=== PATIENT | female | born 1990 | race African-American/Black ===

== ENCOUNTER 2017-03-18 11:00 | Inpatient (IN) | payer OTHER ==
--- NOTE | ~2017-03-18 | DS ---
Unit #: [id number] #: [id number] Patient: SONIYA KO [id number] [facility] [address] [place] [address] [id number] I MR#: [id number] NAME: SONIYA KO ROOM: 16 Age: 27 Sex: F Admission Date: 03/18/2017 : 1990 Discharge Date: 03/21/2017 Attending Physician: Jose Hardin M.D. Primary Care Physician: Primary Care Physician No DISCHARGE SUMMARY REASON FOR ADMISSION The patient is a 27-year-old female, admitted with recurrent use of alcohol and psychosis. HOSPITAL COURSE The patient was admitted to the [address] [place] [address] unit and placed on suicide precautions. She was restarted on previously prescribed medications including Prozac and Zyprexa. Zyprexa was increased to 15 mg at bedtime. As has been the case during previous hospitalizations, the patient appeared initially to be extremely decompensated and then had a rapid and almost miraculous recovery. When seen by this physician on 03/21/2017, the patient was bright, euthymic, and exhibited absolutely. No evidence of psychosis or disordered mood or thought. She did attribute the events, which led to hospitalization to intoxication and was in agreement with plan for followup in the intensive outpatient program provided by this facility. As per her request, discharge was ordered. FINAL DIAGNOSES Alcohol use disorder; mood disorder, unspecified; morbid obesity. DISPOSITION ON DISCHARGE The patient is discharged on the following medications: Zyprexa 15 mg at bedtime for mood stabilization and Prozac 20 mg daily for mood stabilization. DISCHARGE INSTRUCTIONS No dietary or physical restrictions were placed upon the patient at the time of discharge. FOLLOWUP Follow up will take place in the intensive outpatient program provided by this facility. PROGNOSIS The patient's prognosis is considered fair. Dictated by... Jose Hardin M.D. CB/katina TD: 03/21/2017 14:10 Unit #: [id number] #: [id number] Patient: SONIYA KO JOB #: [id number] DISCHARGE SUMMARY Page 1 of 1 X Jose Hardin MD X DISCHARGE SUMMARY
--- NOTE | ~2017-03-18 | PN ---
Unit #: [id number] #: [id number] Patient: SONIYA KO [id number] [facility] [address] [place] [address] [id number] I MR#: [id number] NAME: SONIYA KO ROOM: 16 Age: 27 Sex: F Admission Date: 03/18/2017 : 1990 Attending Physician: Jose Hardin M.D. Admitting Physician: Jose Hardin M.D. Primary Care Physician: Primary Care Physician June GUTIERREZ PROGRESS NOTES DATE 03/20/2017 DISCUSSION The patient is abed resting comfortably today. Staff that she remains seclusive to room but remains somewhat bizarre. Review of the patient's chart yesterday does indicate the patient had showed remarkable state of improvement upon her discharge from this facility on the last occasion of her hospitalization and she had been assigned a diagnosis of bipolar spectrum disorder after there had initially been concerns regarding possible schizophreniform disorder. Dictated by... Jose Hardin M.D. CB/ev TD: 03/21/2017 01:15 JOB #: [id number] [facility] PROGRESS NOTES Page 1 of 1 X Jose Hardin MD X PROGRESS NOTE
--- NOTE | ~2017-03-18 | PA ---
Unit #: [id number] #: [id number] Patient: SONIYA KO [id number] [facility] [address] [place] [address] [id number] MR#: [id number] NAME: SONIYA KO ROOM: P116 Age: 27 Sex: F Admission Date: 03/18/2017 : 1990 Date of Assessment: 03/19/2017 Attending Physician: Jose Hardin M.D. Admitting Physician: Jose Hardin M.D. Primary Care Physician: Primary Care Physician No PSYCHIATRIC ASSESSMENT IDENTIFYING INFORMATION The patient is a 27-year-old female well known to this physician. She is admitted with recurrence of psychosis and alcohol use. CHIEF COMPLAINT None given. INFORMANT Patient and chart, reliability is fair. HISTORY OF PRESENT ILLNESS The patient is a 27-year-old female admitted to the [address] [place] [address] Unit after she had been brought to this facility by family members. The patient has been acting in a bizarre fashion reporting that she was hearing voices telling her to go to her old high school. The patient also drank a fifth of Tequila at the school. The patient apparently returned home without her pants. The patient has reported increasing auditory hallucinations when seen today and queried regarding the reason for her admission to the hospital. The patient states "God" then hungrily eats her lunch and does not comply with further attempted interview. She does nod yes when queried as to whether she has been continuing to comply with her prescribed medications. The patient has been an inpatient at this facility in the past but it is unclear who is providing her outpatient care at this time. PAST PSYCHIATRIC HISTORY Reviewed, no changes. PAST MEDICAL HISTORY The patient is morbidly obese. MEDICATIONS Prozac, Zyprexa. ALLERGIES None reported. FAMILY HISTORY Reviewed, no changes. SOCIAL HISTORY Reviewed, no changes. Unit #: [id number] #: [id number] Patient: SONIYA KO MENTAL STATUS EXAMINATION Examination at this time reveals the patient to be a morbidly obese, hungrily eating female. She is dressed in the hospital garb. The patient does not comply with attempted interview apart from nodding yes and reporting one-word "God" when queried as to why she had been brought to the hospital. ASSETS AND LIABILITIES The patient's assets: Supportive family. Liabilities: Ongoing substance use, chronicity of illness, poor compliance with treatment. DIAGNOSTIC IMPRESSION 1. Chronic paranoid schizophrenia. 2. Alcohol use disorder. 3. Morbid obesity. TREATMENT PLAN The patient's medications will be continued, and her Zyprexa increased to 15 mg at bedtime. The patient will participate in appropriate order of milieu activities, and routine detoxification protocol has been initiated. ESTIMATED LENGTH OF STAY 5 to 7 days. Dictated by... Jose Hardin M.D. Kayleigh TD: 03/19/2017 13:24 JOB #: [id number] PSYCHIATRIC ASSESSMENT Page 1 of 1 X Jose Hardin MD X PSYCHIATRIC ASSESSMENT
--- NOTE | ~2017-03-18 | HP ---
Unit #: [id number] #: [id number] Patient: SONIYA KO [id number] [place] [address] [id number] I MR#: [id number] NAME: SONIYA KO ROOM: P116 Age: 27 Sex: F Admission Date: 03/18/2017 : 1990 Attending Physician: Jose Hardin M.D. Admitting Physician: Jose Hardin M.D. Primary Care Physician: Primary Care Physician No HISTORY AND PHYSICAL HISTORY OF PRESENT ILLNESS The patient is a 27-year-old female who states she is having some depression problems. She is having some problems with alcohol, hearing voices. PAST MEDICAL HISTORY None. PAST SURGICAL HISTORY None. ALLERGIES None. SOCIAL HISTORY Negative. FAMILY HISTORY Noncontributory. REVIEW OF SYSTEMS CONSTITUTIONAL: No fever or chills. HEENT: Denies any sore throat, ear pain or runny nose. CARDIOVASCULAR: Denies chest pain, irregular heart rhythm or palpitations. CHEST: Denies shortness of breath or cough. No hemoptysis. GASTROINTESTINAL: Denies nausea, vomiting, diarrhea or chronic constipation. ENDOCRINE: Denies history of increased thirst or urination. No recent significant weight loss or gain. GENITOURINARY: Denies dysuria, frequency, or hematuria. SKIN: Denies any rashes. HEMATOLOGIC: Denies history of increased bleeding or bruising. MUSCULOSKELETAL: Denies any hot, swollen joints. No generalized muscle pain. NEUROLOGIC: Denies problems with vision or speech. No frequent, severe headaches. No numbness, tingling or weakness in any extremities. Denies loss of bladder or bowel control. CURRENT MEDICATIONS None. PHYSICAL EXAMINATION GENERAL: Alert, oriented, in no acute distress. Unit #: [id number] #: [id number] Patient: SONIYA KO VITAL SIGNS: Blood pressure 91/41, heart rate 90, respirations 18, temperature 98. HEIGHT: 5 feet 7 inches. WEIGHT: 250 pounds. SKIN: Warm and dry without rash or lesion. Multiple tattoos to the right abdomen, right arm, left upper arm. HEENT: Normocephalic. TMs not viewed. Oral and nasal passages clear. Conjunctivae clear. PERRLA. EOMs intact. NECK: Supple without lymphadenopathy or thyromegaly. HEART: Regular rate and rhythm without murmur. LUNGS: Clear. ABDOMEN: Soft, nontender, without masses or hepatosplenomegaly. : Not done. EXTREMITIES: No evidence of cyanosis, clubbing or edema. Moves all without focal deficit. NEUROLOGICAL: Grossly within normal limits. Cranial Nerves: II: Visual monroe are intact. III, IV AND : Extraocular movements are intact. Pupils are equal, round and reactive to light. V: Facial sensation is grossly normal. VII: Facial movements and expression are normal. VIII: Auditory acuity grossly intact. IX, X: Uvula is midline. Phonation is normal. XI: Patient shrugs shoulders and turns head normally. XII: Tongue protrudes in the midline. Sensory and Motor Function: Sensory and motor sensation is grossly normal. Motor: moves all extremities well. Coordination: Gait is normal. Deep Tendon Reflexes: Intact. IMPRESSION Psychiatric admission. RECOMMENDATIONS PSYCHIATRIC: Per psychiatrist. MEDICAL: No contraindication to participate in facility's activities. MEDICAL PROGNOSIS Good. Dictated by... Aylin Levy/renee TD: 03/19/2017 18:32 JOB #: [id number] Unit #: [id number] #: [id number] Patient: SONIYA KO HISTORY AND PHYSICAL Page 1 of X Michelle Pal APR X HISTORY AND PHYSICAL
[2017-03-19 11:26] LABS: BASOPHIL# 0.1 X10e3 (0-0.3); BASOPHIL% 0.8 % (0-2.5); EOSINOPHIL# 0.1 X10e3 (0-0.7); EOSINOPHIL% 0.7 % (0.0-7.0); HEMATOCRIT 39.5 % (35.0-45.0); HEMOGLOBIN 13.1 gm/dL (12.0-16.0); LYMPHOCYTE# 2.7 X10e3 (1.0-3.5); LYMPHOCYTE% 27.4 % (17.0-45.0); MEAN CELL VOLUME 89.9 FL (83-96); MEAN CORPUSCULAR HEMOGLOBIN 29.8 PG (28-34); MEAN CORPUSCULAR HGB CONC 33.2 g/dL (30-36); MEAN PLATELET VOLUME 8.2 FL (6.5-11.5); MONOCYTE# 0.8 X10e3 (0-1.0); MONOCYTE% 7.8 % (3.0-12.0); NEUTROPHIL# 6.2 X10e3 (1.5-7.1); NEUTROPHIL% 63.3 % (40-75); PLATELET COUNT 320 X10e3 (140-420); RED BLOOD COUNT 4.39 X10e (3.90-5.30); RED CELL DISTRIBUTION WIDTH 14.3 % (11.0-15.5); WHITE BLOOD COUNT 9.8 X10e3 (4.0-10.5)
[2017-03-19 11:34] LABS: DIFF IND NO
[2017-03-19 12:13] LABS: ALBUMIN SERUM 3.5 g/dL (3.5-5.0); BILIRUBIN,TOTAL 0.8 mg/dL (0.2-2.0); BUN/CREATININE RATIO 14.44; CALCIUM SERUM 9.3 mg/dL (8.4-10.2); CREATININE SERUM 0.9 mg/dL (0.6-1.4); GLOM FILT RATE Estimated 103.1 mL/min (>60); POTASSIUM 3.9 mmol/L (3.5-5.1); PROTEIN TOTAL SERUM 6.7 g/dL (6.0-8.3)
[2017-03-20 11:32] LABS: TMH HEPATITIS B SURFACE AG -JH Negative (Negative); TMH HEPATITIS C AB - JH Negative (Negative)
== END 2017-03-21 16:09 | disposition home or self-care (01) | DRG 885 ==
LOC: P1S 15:50
PROVIDERS: Specialist
PROC: HZ2ZZZZ Detoxification Services for Substance Abuse Treatment (ICD-10-PCS; principal; 2017-03-18)
DX: F20.0 Paranoid schizophrenia (principal); E66.01 Morbid (severe) obesity due to excess calories; F10.20 Alcohol dependence, uncomplicated
CPT/HCPCS: 80053; 84703; 85025; 86803; 87340; 87806; J1200; J1630; J2060

== ENCOUNTER 2017-04-05 19:12 | Inpatient (IN) | payer OTHER ==
[~2017-04-05] VITALS: Ht 170.2 cm; Wt 113.4 kg
--- NOTE | ~2017-04-05 | HP ---
Unit #: [id number] #: [id number] Patient: SONIYA KO [id number] [facility] [address] [place] [address] [id number] I MR#: [id number] NAME: SONIYA KO ROOM: [facility] Age: 27 Sex: F Admission Date: 04/05/2017 : 1990 Attending Physician: Jose Hardin M.D. Admitting Physician: Jose Hardin M.D. Primary Care Physician: Primary Care Physician No HISTORY AND PHYSICAL NOTE Soniya is a 27-year-old female admitted to [facility] with depression and because of her abuse of alcohol. The patient was seen and H and P dated 03/19/2017 was reviewed. This is current. No changes. Please see H and P dated 03/19/2017. Dictated by... Annita Belcher P.A.-C. for Marcin Donaldson/ev TD: 04/06/2017 21:06 JOB #: [id number] HISTORY AND PHYSICAL Page 1 of 1 X Annita Belcher HISTORY AND PHYSICAL
--- NOTE | ~2017-04-05 | PA ---
Unit #: [id number] #: [id number] Patient: SONIYA KO [id number] [facility] [address] [place] [address] [id number] I MR#: [id number] NAME: SONIYA KO ROOM: P254 Age: 27 Sex: F Admission Date: 04/05/2017 : 1990 Date of Assessment: 04/06/2017 Attending Physician: Jose Hardin M.D. Admitting Physician: Jose Hardin M.D. Primary Care Physician: Primary Care Physician No PSYCHIATRIC ASSESSMENT IDENTIFY INFORMATION The patient is a 27-year-old female, admitted after she had become intoxicated and made suicidal and homicidal threats. INFORMANT(S) Patient, reliability is fair. CHIEF COMPLAINT None given. HISTORY OF PRESENT ILLNESS The patient is a 27-year-old female, last discharged from this facility on 03/21/2017. The patient had been participating in the intensive outpatient program but while there had relapsed and began using alcohol again. She had reported to this facility that she was having thoughts of "killing people and killing family and friends," and was also having suicidal thoughts. The patient reports that she had recently relapsed from alcohol and when seen today the patient is contrite over this and is denying any suicidal or homicidal ideations. For a more complete history of present illness please refer to previously dictated notes. PAST PSYCHIATRIC HISTORY Reviewed and no changes. PAST MEDICAL HISTORY Reviewed and no changes. MEDICATIONS 1. Prozac 2. Zyprexa ALLERGIES None reported. FAMILY HISTORY Reviewed and no changes. SOCIAL HISTORY Reviewed and no changes. MENTAL STATUS EXAM At this time reveals the patient to be a morbidly obese Unit #: [id number] #: [id number] Patient: SONIYA KO female, appearing her stated age. She is dressed in hospital garb. She is awake, alert, and oriented in all spheres. Her mood is mildly dysphoric. Her affect is congruent. Speech is generally relevant and coherent. There are no gross deficits to memory or cognition noted. Intelligence is judged to be in the average range based on fund of knowledge. The patient is cooperative throughout the interview. She is currently denying suicidal or homicidal ideation, denies any psychotic symptoms. Her judgment and insight appear to be intact. ASSETS Motivation for change. LIABILITIES Lack of resources. DIAGNOSTIC IMPRESSION [place] I: Alcohol use disorder. Mood disorder, unspecified. TREATMENT PLAN The patient will be transferred to the [facility] or [address] [place] [address] and a routine detoxification protocol for alcohol has been put in place. Prozac and Zyprexa will be reinitiated at their previous doses. ESTIMATED LENGTH OF STAY Szbpq-hz-xvas days. Follow up to take place in the intensive outpatient program provided by this facility. Dictated by... Jose Hardin M.D. ABDIAS/tavia TD: 04/06/2017 12:44 JOB #: [id number] PSYCHIATRIC ASSESSMENT Page 1 of 1 X Jose Hardin MD X PSYCHIATRIC ASSESSMENT
--- NOTE | ~2017-04-05 | DS ---
Unit #: [id number] #: [id number] Patient: SONIYA KO [id number] [facility] [address] [place] [address] [id number] I MR#: [id number] NAME: SONIYA KO ROOM: 73 Age: 27 Sex: F Admission Date: 04/05/2017 : 1990 Discharge Date: 04/08/2017 Attending Physician: Jose Hardin M.D. Primary Care Physician: Primary Care Physician No DISCHARGE SUMMARY REASON FOR ADMISSION The patient is a 27-year-old female, admitted with recurrent abuse of alcohol. HOSPITAL COURSE The patient was admitted to the [facility] unit and placed on routine detoxification protocol for opioids. Home medications including Prozac and Zyprexa were continued. The patient's mentation cleared rapidly and by 04/08/2017, she was requesting discharge. It is worth noting that some of the patient's symptoms of disordered mood do seem related to her alcohol use. This physician has encountered the patient when she does seem to have been in actual bipolar manic or depressed which in the opinion this physician to justify continued use of Prozac and Zyprexa. During the patient's continued participation in intensive outpatient programming, we makes poor initiation of further mood stabilizing medication i.e., lithium or Depakote. Dictated by... Jose Hardin M.D. CB/modl TD: 04/10/2017 10:49 JOB #: [id number] DISCHARGE SUMMARY Page 1 of 1 X Jose Hardin MD X DISCHARGE SUMMARY
--- NOTE | ~2017-04-05 | PN ---
Unit #: [id number] #: [id number] Patient: SONIYA KO [id number] [facility] [address] [place] [address] [id number] I MR#: [id number] NAME: SONIYA KO ROOM: 73 Age: 27 Sex: F Admission Date: 04/05/2017 : 1990 Attending Physician: Jose Hardin M.D. Admitting Physician: Jose Hardin M.D. Primary Care Physician: Primary Care Physician June GUTIERREZ PROGRESS NOTES DATE 04/07/2017 DISCUSSION The patient is abed sleeping soundly today. Staff reports no management issues and her detox continues uneventfully should she sustain progress discharge could take place as early as tomorrow. Dictated by... Jose Hardin M.D. CB/ev TD: 04/07/2017 22:42 JOB #: [id number] [facility] PROGRESS NOTES Page 1 of 1 X Jose Hardin MD X PROGRESS NOTE
--- NOTE | ~2017-04-05 | DS ---
Unit #: [id number] #: [id number] Patient: SONIYA KO [id number] [facility] [address] [place] [address] [id number] I MR#: [id number] NAME: SONIYA KO ROOM: 73 Age: 27 Sex: F Admission Date: 04/05/2017 : 1990 Discharge Date: 04/08/2017 Attending Physician: Jose Hardin M.D. Primary Care Physician: Primary Care Physician No DISCHARGE SUMMARY FINAL DIAGNOSES Alcohol use disorder, bipolar disorder, unspecified and morbid obesity. DISPOSITION ON DISCHARGE The patient is discharged on the following medications: Zyprexa 15 mg at bedtime for mood stabilization, Prozac 20 mg daily for depression, Vistaril 50 mg q.6 hours p.r.n. anxiety and melatonin 5 mg at bedtime p.r.n. insomnia. DISCHARGE INSTRUCTIONS No dietary or physical restrictions were placed on the patient on discharge. She will return to the intensive outpatient program provided by this facility. PROGNOSIS Considered fair. Dictated by... Jose Hardin M.D. CB/katina TD: 04/10/2017 11:15 JOB #: [id number] DISCHARGE SUMMARY Page 1 of 1 X Jose Hardin MD X DISCHARGE SUMMARY
[2017-04-06 09:33] LABS: BASOPHIL% 0.5 % (0-2.5); EOSINOPHIL# 0.2 X10e3 (0-0.7); EOSINOPHIL% 2.5 % (0.0-7.0); HEMATOCRIT 40.4 % (35.0-45.0); HEMOGLOBIN 13.3 gm/dL (12.0-16.0); LYMPHOCYTE# 2.9 X10e3 (1.0-3.5); LYMPHOCYTE% 41.1 % (17.0-45.0); MEAN CELL VOLUME 90.2 FL (83-96); MEAN CORPUSCULAR HEMOGLOBIN 29.6 PG (28-34); MEAN CORPUSCULAR HGB CONC 32.8 g/dL (30-36); MEAN PLATELET VOLUME 7.8 FL (6.5-11.5); MONOCYTE# 0.6 X10e3 (0-1.0); MONOCYTE% 8.6 % (3.0-12.0); NEUTROPHIL# 3.3 X10e3 (1.5-7.1); NEUTROPHIL% 47.3 % (40-75); PLATELET COUNT 323 X10e3 (140-420); RED BLOOD COUNT 4.48 X10e (3.90-5.30); RED CELL DISTRIBUTION WIDTH 14.7 % (11.0-15.5)
[2017-04-06 09:37] LABS: DIFF IND NO
[2017-04-06 10:13] LABS: ALBUMIN SERUM 3.2 g/dL (3.5-5.0); BILIRUBIN,TOTAL 0.1 mg/dL (0.2-2.0); BUN/CREATININE RATIO 13.75; CALCIUM SERUM 9.3 mg/dL (8.4-10.2); CREATININE SERUM 0.8 mg/dL (0.6-1.4); GLOM FILT RATE Estimated 118.9 mL/min (>60); POTASSIUM 4.8 mmol/L (3.5-5.1); PROTEIN TOTAL SERUM 6.5 g/dL (6.0-8.3)
[2017-04-08 09:35] LABS: URINE APPEARANCE CLEAR; URINE BILIRUBIN NEG (NEG); URINE BLOOD NEG (NEG); URINE COLOR DK YELLOW; URINE GLUCOSE NEG (NEG); URINE KETONE NEG (NEG); URINE LEUKOCYTE ESTERASE TRACE (NEG); URINE NITRATE NEG (NEG); URINE PH 6.5 (5-8); URINE PROTEIN NEG (NEG); URINE SPECIFIC GRAVITY 1.012 (1.003-1.035); URINE UROBILINOGEN 0.2 MG/DL (NEG)
[2017-04-08 09:39] LABS: URBCS1 AUWI 0-2 /[HPF] (0-2); URINE BACTERIA AUWI NEG (NEGATIVE); URINE SQUAMOUS EPITHELIAL CELL NONE SEEN /[HPF]; UWBCS1 AUWI 0-2 (0-5)
[2017-04-08 10:29] LABS: AMPHETAMINE NEG (NEG); BARBITURATES NEG (NEG); BENZODIAZEPINES NEG (NEG); COCAINE NEG (NEG); MARIJUANA NEG (NEG); OPIATES NEG (NEG); TRICYCLIC ANTIDEPRESSANTS NEG (NEG); U METHADONE NEG (NEG)
== END 2017-04-08 15:45 | DRG 897 ==
LOC: P2L 21:38 → P1E 04-06 17:56
PROVIDERS: Specialist
PROC: HZ2ZZZZ Detoxification Services for Substance Abuse Treatment (ICD-10-PCS; principal; 2017-04-05)
DX: F10.10 Alcohol abuse, uncomplicated (principal); E66.01 Morbid (severe) obesity due to excess calories; F39 Unspecified mood [affective] disorder; F31.9 Bipolar disorder, unspecified; Z68.39 Body mass index [BMI] 39.0-39.9, adult
CPT/HCPCS: 80053; 80307; 81003; 84703; 85025; 86592

== ENCOUNTER 2017-05-08 19:43 | Inpatient (IN) | payer OTHER ==
--- NOTE | ~2017-05-08 | PA ---
Unit #: [id number] #: [id number] Patient: SONIYA KO [id number] [facility] [address] [place] [address] [id number] MR#: [id number] NAME: SONIYA KO ROOM: 30 Age: 27 Sex: F Admission Date: 05/08/2017 : 1990 Date of Assessment: 05/09/2017 Attending Physician: Jose Hardin M.D. Admitting Physician: Jose Hardin M.D. Primary Care Physician: Primary Care Physician No PSYCHIATRIC ASSESSMENT IDENTIFY INFORMATION The patient is a 27-year-old female, admitted to the hospital after she presented homicidal ideation and ongoing use of substances. CHIEF COMPLAINT None given. INFORMANT Chart, patient could not aroused for interview. HISTORY OF PRESENT ILLNESS The patient is a 27-year-old female well known to this facility from multiple previous admissions to this facility. She is readmitted after she presented to this facility intoxicated and claiming to have homicidal ideation towards family members. The patient has a history of adverse response to alcohol and tends to clear rapidly once hospitalized. She is today soundly sleeping and cannot be aroused for interview. For more complete history of present illness please refer to previous dictated notes. PAST PSYCHIATRIC HISTORY Reviewed and no changes. PAST MEDICAL HISTORY Reviewed and no changes. MEDICATIONS 1. Prozac 2. Zyprexa ALLERGIES None. FAMILY HISTORY Reviewed and no changes. SOCIAL HISTORY Reviewed and no changes. MENTAL STATUS EXAM At this time reveals the patient to be a morbidly obese Unit #: [id number] #: [id number] Patient: SONIYA KO female who is abed and sleeping soundly. Multiple attempts to arouse the patient are unsuccessful. ASSETS To be assessed. LIABILITIES Lack of resources, ongoing alcohol use, poor compliance of treatment. . DIAGNOSTIC IMPRESSION [place] I: Alcohol use disorder. Cannabis use disorder. Psychotic disorder unspecified. TREATMENT PLAN The patient remains hospitalized for safety and stabilization. A routine detoxification protocol for alcohol has been initiated and we will restart the patient's previously prescribed Prozac and Zyprexa. She will participate in appropriate pack and milieu activities with an estimate length of stay in the hospital of 5 to 7 days. Dictated by... Marcin House TD: 05/09/2017 21:59 JOB #: [id number] PSYCHIATRIC ASSESSMENT Page 1 of 1 X Jose Hardin MD X PSYCHIATRIC ASSESSMENT
--- NOTE | ~2017-05-08 | DS ---
Unit #: [id number] #: [id number] Patient: SONIYA KO [id number] [facility] [address] [place] [address] [id number] I MR#: [id number] NAME: SONIYA KO ROOM: [facility] Age: 27 Sex: F Admission Date: 05/08/2017 : 1990 Discharge Date: 05/10/2017 Attending Physician: Jose Hardin M.D. Primary Care Physician: Primary Care Physician No DISCHARGE SUMMARY REASON FOR ADMISSION The patient is a 27-year-old single female admitted after she had become intoxicated and psychotic. HOSPITAL COURSE The patient was admitted to the [address] [place] [address] unit and restarted on previously prescribed medications, Prozac and Zyprexa. Routine detoxification protocol was ordered. The patient's response to these medications was rapid and dramatic. By 05/10, the patient was in bright spirits and exhibited no signs or symptoms of withdrawal or psychosis. She was again firmly confronted regarding the deleterious effect of ongoing abuse of psychoactive substances is having on her. Discharge was ordered as per her request. DISCHARGE DIAGNOSES 1. Alcohol use disorder. 2. Cannabis use disorder. 3. Morbid obesity. FOLLOWUP CARE Followup to take place through the auspices of community mental health resources. DISCHARGE MEDICATIONS The patient is discharged on the following medications: 1. Prozac 20 mg daily for depression. 2. Zyprexa 15 mg at h.s. for psychosis. DIET AND ACTIVITY No dietary or physical restrictions were placed on the patient at time of discharge. Dictated by... Jose Hardin M.D. ABDIAS/renee TD: 05/10/2017 17:54 Unit #: [id number] #: [id number] Patient: SONIYA KO JOB #: [id number] DISCHARGE SUMMARY Page 1 of 1 X Jose Hardin MD X DISCHARGE SUMMARY
--- NOTE | ~2017-05-08 | HP ---
Unit #: [id number] #: [id number] Patient: SONIYA KO [id number] [facility] [address] [place] [address] [id number] MR#: [id number] NAME: SONIYA KO ROOM: 30 Age: 27 Sex: F Admission Date: 05/08/2017 : 1990 Attending Physician: Jose Hardin M.D. Admitting Physician: Jose Hardin M.D. Primary Care Physician: Primary Care Physician No HISTORY AND PHYSICAL HISTORY OF PRESENT ILLNESS Soniya is a 27 year old admitted to [address] [place] [address] because of her continued abuse of alcohol and after verbalizing wanting to kill "everybody." She was recently discharged from this facility after treatment for her alcohol abuse. PAST MEDICAL HISTORY History of alcohol abuse. PAST SURGICAL HISTORY Nothing reported. ALLERGIES No known drug allergies. SOCIAL HISTORY She does not smoke. Drinks alcohol frequently to excess and admits to using marijuana. FAMILY HISTORY Medically noncontributory. REVIEW OF SYSTEMS She does not answer questions appropriately. There are no reports of nausea, vomiting or diarrhea. She has had no cough or increased temperature. CURRENT MEDICATIONS 1. Prozac 20 mg q day 2. Zyprexa 15 mg q day 3. Milk of Magnesia p.r.n. 4. Maalox p.r.n. 5. Tylenol p.r.n. 6. Nicotine patch 14 mg q day PHYSICAL EXAMINATION GENERAL: Alert, morbidly obese, in no apparent distress. VITAL SIGNS: Blood pressure 150/94, heart rate 100, respirations 16, temperature 98.6. WEIGHT: 250. HEIGHT: 5 foot 7 inches. SKIN: Warm and dry without rash or lesion. Unit #: [id number] #: [id number] Patient: SONIYA KO HEENT: Normocephalic. TMs not viewed. Oral and nasal passages clear. Conjunctivae clear. Pupils equal, round and reactive to light and accommodation. Extraocular movements intact. NECK: Supple without lymphadenopathy or thyromegaly. HEART: Regular rate and rhythm without murmur. LUNGS: Clear. ABDOMEN: Soft, nontender. : Not done. EXTREMITIES: No evidence of cyanosis, clubbing or edema. Moves all extremities without focal deficit. NEUROLOGICAL: Unable to complete extended exam. She does move all extremities without focal deficit. Hand terrazzo layer is equal and gait is normal. IMPRESSION Psychiatric admission. RECOMMENDATIONS PSYCHIATRIC: Per psychiatrist. MEDICAL: I see no contraindications to participating in facility's activities. MEDICAL PROGNOSIS Good. MEDICAL CONDITION Stable. Dictated by... Annita Belcher P.A.-C. for Marcin Donaldson/ev TD: 05/10/2017 00:06 JOB #: [id number] HISTORY AND PHYSICAL Page 1 of 1 X Annita Belcher X HISTORY AND PHYSICAL
[2017-05-09 12:38] LABS: BASOPHIL# 0.1 X10e3 (0-0.3); BASOPHIL% 0.7 % (0-2.5); EOSINOPHIL# 0.7 X10e3 (0-0.7); EOSINOPHIL% 8.5 % (0.0-7.0); HEMOGLOBIN 12.6 gm/dL (12.0-16.0); LYMPHOCYTE# 2.7 X10e3 (1.0-3.5); LYMPHOCYTE% 31.9 % (17.0-45.0); MEAN CORPUSCULAR HEMOGLOBIN 29.6 PG (28-34); MEAN CORPUSCULAR HGB CONC 33.3 g/dL (30-36); MEAN PLATELET VOLUME 8.1 FL (6.5-11.5); MONOCYTE# 0.6 X10e3 (0-1.0); MONOCYTE% 7.1 % (3.0-12.0); NEUTROPHIL# 4.4 X10e3 (1.5-7.1); NEUTROPHIL% 51.8 % (40-75); PLATELET COUNT 298 X10e3 (140-420); RED BLOOD COUNT 4.27 X10e (3.90-5.30); RED CELL DISTRIBUTION WIDTH 14.4 % (11.0-15.5); WHITE BLOOD COUNT 8.4 X10e3 (4.0-10.5)
[2017-05-09 12:51] LABS: ALBUMIN SERUM 3.2 g/dL (3.5-5.0); BILIRUBIN,TOTAL 0.9 mg/dL (0.2-2.0); BUN/CREATININE RATIO 12.5; CALCIUM SERUM 8.9 mg/dL (8.4-10.2); CREATININE SERUM 0.8 mg/dL (0.6-1.4); GLOM FILT RATE Estimated 118.9 mL/min (>60); POTASSIUM 4.3 mmol/L (3.5-5.1); PROTEIN TOTAL SERUM 5.9 g/dL (6.0-8.3)
== END 2017-05-10 15:12 | disposition home or self-care (01) | DRG 897 ==
LOC: P1S 19:43
PROVIDERS: Specialist
PROC: HZ2ZZZZ Detoxification Services for Substance Abuse Treatment (ICD-10-PCS; principal; 2017-05-09)
DX: F10.10 Alcohol abuse, uncomplicated (principal); E66.01 Morbid (severe) obesity due to excess calories; F12.10 Cannabis abuse, uncomplicated
CPT/HCPCS: 80053; 84703; 85025